=== PATIENT | female | born 1990 | race Caucasian/White ===

== ENCOUNTER 2017-12-08 23:26 | Emergency (ER) | payer OTHER ==
[~2017-12-08] VITALS: Ht 149.9 cm; Wt 93.0 kg
[~2017-12-08 23:26] MED LIST: CIPRO500 MG PO; KETO10TA2 PO
[2017-12-09] MEDS ORDERED: MEDROL4 MG PO ×2 (03:17→03:21)
[2017-12-09] MEDS ORDERED: BENADRYL25 MG PO (03:17)
[2017-12-09] MEDS ORDERED: CEFADROXIL500 MG PO ×2 (03:19→03:21)
[2017-12-09] MEDS ORDERED: MUPIROCIN22 GM TOP ×2 (03:20→03:21)
== END 2017-12-09 03:32 | disposition home or self-care (01) ==
LOC: ER 23:26
DX: L23.9 Allergic contact dermatitis, unspecified cause (principal)

== ENCOUNTER 2018-01-07 22:06 | Emergency (ER) | payer OTHER ==
[~2018-01-07] VITALS: Ht 149.9 cm; Wt 90.7 kg
[~2018-01-07 22:06] MED LIST changes: +BENADRYL25 MG PO; +CEFADROXIL500 MG PO; +MEDROL4 MG PO; +MUPIROCIN22 GM TOP
[2018-01-08] MEDS ORDERED: LEVAQUIN750 MG PO (01:42)
== END 2018-01-08 01:40 | disposition home or self-care (01) ==
LOC: ER 22:06
DX: L03.317 Cellulitis of buttock (principal)

== ENCOUNTER → 2018-05-12 | Emergency (ER) | payer OTHER ==
[~2018-05-12] VITALS: Ht 149.9 cm; Wt 93.9 kg
[~2018-05-12] MED LIST changes: +LEVAQUIN750 MG PO; +PANADOL EXTRA500 MG
== END | disposition home or self-care (01) ==
LOC: ER 21:46
DX: J02.8 Acute pharyngitis due to other specified organisms (principal)